=== PATIENT | male | born 1945 | race Caucasian/White ===

== ENCOUNTER 2021-01-21 12:37 | Emergency (ER) | payer MEDICARE, SELFPAY ==
--- NOTE | ~2021-01-21 | XR_ITS ---
EXAMINATION: XR finger 1st LT min 2V INDICATION: First finger laceration TECHNIQUE: Three views of the left first finger are obtained. COMPARISON: None available FINDINGS: There is a laceration overlying the dorsal aspect of the first proximal phalanx. A subtle t ransverse lucency of the proximal phalanx near the laceration could reflect a nondisplaced fracture. There is mild polyarticular osteoarthritis. No radiopaque foreign body is identified.. IMPRESSION: 1. Laceration at the dorsal aspect of the first proximal phalanx with subtle adjacent lucency possibl y reflecting a nondisplaced fracture. Reviewed, dictated and finalized at location A. IMPRESSION: 1. Laceration at the dorsal aspect of the first proximal phalanx with subtle ad jacent lucency possibly reflecting a nondisplaced fracture.
[2021-01-21 12:41] VITALS: BP 192/84; PULSE 69; RESP 18; TEMP 36.3; O2SAT 94
--- NOTE | 2021-01-21 13:13 | ED.UPPEXIN ---
HPI - Extremity Injury (Upper) General Chief Complaint: Wound/Laceration <Robbin Christine MD - Last Filed: 01/21/21 15:19> Stated Complaint: left thumb lac <Robbin Christine MD - Last Filed: 01/21/21 15:19> Time Seen by Provider: 01/21/21 12:48 <Robbin Christine MD - Last Filed: 01/21/21 15:19> Source: patient <Robbin Christine MD - Last Filed: 01/21/21 15:19> Mode of arrival: ambulatory <Robbin Christine MD - Last Filed: 01/21/21 15:19> Limitations: no limitations <Robbin Christine MD - Last Filed: 01/21/21 15:19> History of Present Illness HPI narrative: Patient is a 75-year-old male complaining of a laceration on his left thumb after accidentally hitting it with his crossbow. Patient denies any other pain or injury. <Robbin Christine MD - Last Filed: 01/21/21 15:19> Related Data Allergies/Adverse Reactions: Allergies Allergy/AdvReac Type Severity Reaction Status Date / Time No Known Allergies Allergy Unverified 05/24/15 16:57 <Robbin Christine MD - Last Filed: 01/21/21 15:19> Review of Systems Review of Systems: All systems reviewed & are unremarkable except as noted in HPI and below <Robbin Christine MD - Last Filed: 01/21/21 15:19> Constitutional: Constitutional: Reports as per HPI <Robbin Christine MD - Last Filed: 01/21/21 15:19> PMFSH Comments Past medical history: Hypertension Family history: None Social history: Non-smoker no EtOH use lives at home with . <Robbin Christine MD - Last Filed: 01/21/21 15:19> Exam Const: General: cooperative, healthy appearing, comfortable, no acute distress, well developed, alert and awake; No confusion <Robbin Christine MD - Last Filed: 01/21/21 15:19> Nutritional Appearance: obese <Robbin Christine MD - Last Filed: 01/21/21 15:19> Orientation/consciousness: oriented to person, oriented to place, oriented to time, patient oriented x3 and No confusion <Robbin Christine MD - Last Filed: 01/21/21 15:19> Limitations: no limitations <Robbin Christine MD - Last Filed: 01/21/21 15:19> HENMT: Head: normal to inspection, normocephalic and atraumatic <Robbin Christine MD - Last Filed: 01/21/21 15:19> Ears: hearing grossly normal bilaterally, TM normal on the right and TM normal on the left <Robbin Christine MD - Last Filed: 01/21/21 15:19> General nose exam: Normal external nose present, Normal nares present and No nasal discharge present <Robbin Christine MD - Last Filed: 01/21/21 15:19> Face and sinus: normal facial exam <Robbin Christine MD - Last Filed: 01/21/21 15:19> Mouth: Yes Normal oral and palatal mucosa present, Yes lip normal, Yes tongue normal and Yes oropharynx normal <Robbin Christine MD - Last Filed: 01/21/21 15:19> Throat: posterior oropharynx normal, tonsils normal and uvula midline <Robbin Christine MD - Last Filed: 01/21/21 15:19> Eyes: General: appearance normal, both eyes and all related structures <Robbin Christine MD - Last Filed: 01/21/21 15:19> Pupils: Equal, round and reactive pupils present <Robbin Christine MD - Last Filed: 01/21/21 15:19> EOM: EOMs intact bilaterally <Robbin Christine MD - Last Filed: 01/21/21 15:19> Neck: Neck: normal visual inspection, full ROM, no lymphadenopathy and no meningeal signs <Robbin Christine MD - Last Filed: 01/21/21 15:19> Chest: Chest palpation & inspection: normal inspection of the chest <Robbin Christine MD - Last Filed: 01/21/21 15:19> Resp: Effort & Inspection: normal respiratory effort, able to speak in complete sentences, no respiratory distress and not tachypneic <Robbin Christine MD - Last Filed: 01/21/21 15:19> Auscultation: clear to auscultation bilaterally, no crackles, no rales, no rhonchi and no wheezes <Robbin Christine MD - Last Filed: 01/21/21 15:19> Cardio: Rate: regular rate <Robbin Christine MD - Last Filed: 01/21/21 15:19> Rhythm: regular rhythm <Robbin Christine,
[2021-01-21] MEDS: TETANUS,DIPHTHERIA,AC PERTUSSIS ADULT (0.5 ML) BOOSTRIX IM (14:56)
[2021-01-21] MEDS: LIDOCAINE HCL 1% LOCAL INJ 20 ML VIAL 10 ML INFILTRATE (14:57)
[2021-01-21] MEDS: WATER, STERILE FOR INJECTION 10 ML VIAL XX (14:58)
[2021-01-21] MEDS: ceFAZolin SODIUM 1 GM VIAL IM (14:59)
== END 2021-01-21 15:28 | disposition home or self-care (01) ==
PROVIDERS: Emergency Provider Emergency Medicine; PCP Family Medicine
DX: S61.012A Laceration without foreign body of left thumb without damage to nail, initial encounter (principal); Z23 Encounter for immunization; I10 Essential (primary) hypertension; W21.89XA Striking against or struck by other sports equipment, initial encounter
CPT/HCPCS: 12002; 73140; 90471; 90715; 96372; 99283; J0690